=== PATIENT | male | born 1985 | race Caucasian/White ===

== ENCOUNTER 2022-06-25 19:50 | Emergency (ER) | payer MEDICAID ==
[~2022-06-25] VITALS: Ht 162.6 cm; Wt 102.6 kg
[2022-06-25] MEDS ORDERED: HYDROCODONE/ACETAMINOPHEN 5/325MG TABLET PO ONE (23:00)
[2022-06-26 00:05] LABS: BASOPHILS % 0.2 % (0.0-2.0); EOSINOPHILS % 0.8 % (0.0-5.0); HEMATOCRIT. 44.4 % (42.0-52.0); HEMOGLOBIN. 14.5 g/dL (14.0-18.0); LYMPHOCYTES % 12.8 % (20.0-50.0); MEAN CORPUSCULAR HEMOGLOBIN 28.9 pg (28.0-32.0); MEAN CORPUSCULAR VOLUME 88.7 fL (80.0-94.0); MEAN PLATELET VOLUME 9.9 fl (7.4-10.4); MONOCYTES % 7.7 % (2.0-8.0); NEUTROPHILS % 78.5 % (40.0-76.0); PLATELET 228 x1000/uL (130-400); RED CELL DISTRIBUTION WIDTH 13.2 % (11.6-14.6)
[2022-06-26 00:08] LABS: CHLORIDE 101 mEq/L (98-107)
[2022-06-26] MEDS ORDERED: CEPH500T MT (01:03)
[2022-06-26] MEDS ORDERED: SULF1TAB48 MT (01:03)
[2022-06-26] MEDS ORDERED: HYDR-4001 MT (01:04)
[2022-06-26 01:22] VITALS: BP 132/88
== END 2022-06-26 01:23 | disposition home or self-care (01) ==
LOC: EDSEX 19:50 → ER 19:50
DX: L02.212 Cutaneous abscess of back [any part, except buttock and flank] (principal); E11.65 Type 2 diabetes mellitus with hyperglycemia; Z79.899 Other long term (current) drug therapy
CPT/HCPCS: 36415; 80048; 85025; 99283